=== PATIENT | female | born 1950 | race Caucasian/White ===

== ENCOUNTER 2025-01-26 12:18 | Outpatient (CLI) | payer MEDICARE, SELFPAY ==
--- NOTE | 2025-01-26 11:15 | DI.RAD_ITS ---
Exam(s) XR KNEE RT 4V AP,LAT,SCOTT,PAT EXAM: XR KNEE RT 4V AP,LAT,SCOTT,PAT CLINICAL HISTORY: eval R knee pain. TECHNIQUE: 2D digital imaging was performed of the right knee. Four views obtained. Merchant, AP, lateral and PA tunnel views were obtained. COMPARISON: No exams were available for comparison FINDINGS: BONES: No acute fracture is present. No bony destructive lesion is seen. JOINTS: Tricompartment degenerative changes are present characterized by joint space narrowing and osteophytes. The findings are most marked at the patellofemoral joint. No joint effusion is seen. SOFT TISSUE: Atherosclerotic calcification is present. IMPRESSION: Moderate osteoarthritis of the right knee. DATA REPOSITORY: RADIATION DOSE DELIVERED:
== END 2025-01-26 12:19 | disposition home or self-care (01) ==
LOC: DIORS 12:18
PROVIDERS: PCP Nurse Practitioner Family; Referring Provider Nurse Practitioner Family; Visit Provider Student in an Organized Health Care Education/Training Program
DX: M25.561 Pain in right knee (principal); M17.11 Unilateral primary osteoarthritis, right knee; Z96.643 Presence of artificial hip joint, bilateral
CPT/HCPCS: 99203; 73564